=== PATIENT | female | born 1985 | race Caucasian/White ===

== ENCOUNTER 2017-08-31 12:56 | Inpatient (IN) | payer BC, OTHER ==
--- NOTE | 2017-08-31 16:21 | US ---
EXAMINATION: Biophysical profile HISTORY: Prolonged deceleration COMPARISON: None TECHNIQUE: Grayscale, M-mode, and real-time imaging obtained. FINDINGS: There is a single live intrauterine in a cephalic position. Heart rate is 130 bpm . Amniotic fluid index is normal. A score of 2 was given for breathing, however insufficient ev idence movement was demonstrated during a score of 0 for movement and tone. IMPRESSION: 1. Biophysical profile 12/26.
[2017-08-31] MEDS ORDERED: Methylergonovine 0.2 MG/1 ML Amp IM PRN (16:24)
[2017-08-31] MEDS ORDERED: Misoprostol 200 MCG Tab PO PRN (16:24)
[2017-08-31] MEDS ORDERED: Butorphanol 1 MG/ML SDV IVPUSH PRN (16:24)
[2017-08-31] MEDS ORDERED: Sodium Chloride 0.9% 2.5 ML Syringe FLUSH PRN ×2 (16:24→21:12)
[2017-08-31] MEDS ORDERED: Nalbuphine 10 MG/1 ML Vial IVPUSH PRN (16:24)
[2017-08-31] MEDS ORDERED: Carboprost Tromethamine 250 MCG/1 ML Amp IM PRN (16:24)
[2017-08-31] MEDS ORDERED: Lidocaine 1% 50 ML MDV INJECT PRN (16:24)
[2017-08-31] MEDS ORDERED: Sodium Chloride 0.9% 10 ML Syringe FLUSH PRN ×2 (16:24→21:12)
[2017-08-31] MEDS ORDERED: Water For Irrigation,Sterile 1,000 ML Container IRR PRN (16:24)
[2017-08-31] MEDS ORDERED: Oxytocin/0.9 % Sodium Chloride 30 UNIT/500 ML BAG IV SCH ×3 (16:30→21:15)
[2017-08-31] MEDS ORDERED: Lactated Ringers 1,000 ML IV SCH ×3 (16:30→22:15)
[2017-08-31] MEDS ORDERED: Terbutaline 1 MG/ML SDV SUBCUT PRN (16:47)
[2017-08-31] MEDS ORDERED: Misoprostol 25 MCG (1/4 of 100 MCG) Tab VAG PRN (16:47)
[2017-08-31] MEDS ORDERED: Misoprostol 25 MCG (1/4 of 100 MCG) Tab PO PRN (16:47)
--- NOTE | 2017-08-31 16:59 | PCM.LDHP ---
L&D History of Present Illness - General Date of Service: 08/31/17 Admit Problem/Dx: Patient Status Order with Admit Dx/Problem 08/31/17 14:29 Patient Status [ADT] Routine 08/31/17 16:24 Patient Status [ADT] Routine Admission Diagnosis/Problem Admission Diagnosis/Problem Source of Information: Patient History Limitations: Reports: No Limitations - History of Present Illness Improves with: Reports: None Worsens with: Reports: None Associated Symptoms: Reports: N - Related Data Allergies/Adverse Reactions: Allergies Allergy/AdvReac Type Severity Reaction Status Date / Time cephalexin [From Keflex] Allergy Rash Verified 07/26/17 07:49 H&P Review of Systems - Review of Systems: Review Of Systems: See Below General: Reports: No Symptoms HEENT: Reports: No Symptoms Pulmonary: Reports: No Symptoms Cardiovascular: Reports: No Symptoms Gastrointestinal: Reports: No Symptoms Genitourinary: Reports: No Symptoms Musculoskeletal: Reports: No Symptoms Skin: Reports: No Symptoms Psychiatric: Reports: No Symptoms Neurological: Reports: No Symptoms Hematologic/Lymphatic: Reports: No Symptoms Immunologic: Reports: No Symptoms L&D Exam - Exam Exam: See Below - Vital Signs Weight: 65.771 kg - OB Specific Fundal Height In cm: 36 Contraction Intensity: Mild Movement: Active Heart Tones: Present Presentation: Vertex - Saravia Score Saravia Score Cervix Position: Midposition Saravia Score Consistency: Medium Saravia Score Effacement: 31-50% Saravia Score Dilation: 1-2 cm Saravia Score Infant's Station: -2 Saravia Score Total: 5 - Exam General: Alert, Oriented HEENT: PERRLA, Conjunctiva Clear, EACs Clear, EOMI, Hearing Intact, Mucosa Moist & [place], Nares Patent, Normal Nasal Septum, Posterior Pharynx Clear, TMs Clear Neck: Supple, Trachea Midline Lungs: Clear to Auscultation, Normal Respiratory Effort Cardiovascular: Regular Rate, Regular Rhythm GI/Abdominal Exam: Normal Bowel Sounds, Soft, Non-Tender, No Organomegaly, No Distention, No Abnormal Bruit, No Mass, Pelvis Stable Rectal Exam: Normal Exam, Normal Rectal Tone Genitourinary: Normal external exam, Normal bimanual exam, Normal speculum exam Back Exam: Normal Inspection, Full Range of Motion Extremities: Normal Inspection, Normal Range of Motion, Non-Tender, No Pedal Edema, Normal Capillary Refill Skin: Warm, Dry, Intact Neurological: Cranial Nerves Intact, Reflexes Equal Bilateral Psychiatric: Alert, Normal Affect, Normal Mood Problem List Initiated/Reviewed/Updated: Yes Orders Last 24hrs: Active Orders 24 hr Category Date Time Status Patient Status [ADT] Routine ADT 08/31/17 14:29 Active Patient Status [ADT] Routine ADT 08/31/17 16:24 Active Bedrest Bathroom Privileges [RC] ASDIRECTED Care 08/31/17 16:47 Active Communication Order [RC] ASDIRECTED Care 08/31/17 16:47 Active Communication Order [RC] ASDIRECTED Care 08/31/17 16:47 Active Communication Order [RC] ASDIRECTED Care 08/31/17 16:47 Active Heart Tones [RC] CONTINUOUS Care 08/31/17 16:24 Active Non Stress Test [RC] PER UNIT ROUTINE Care 08/31/17 14:29 Active Non Stress Test [RC] PER UNIT ROUTINE Care 08/31/17 16:24 Active May Shower [RC] ASDIRECTED Care 08/31/17 16:24 Active Notify Provider [RC] PRN Care 08/31/17 16:24 Active Notify Provider [RC] PRN Care 08/31/17 16:47 Active Notify Provider [RC] PRN Care 08/31/17 16:47 Active Notify Provider [RC] STAT Care 08/31/17 16:47 Active Oxygen Therapy [RC] ASDIRECTED Care 08/31/17 16:47 Active Up ad Payton [RC] ASDIRECTED Care 08/31/17 14:29 Active Up ad [place] [RC] ASDIRECTED Care 08/31/17 16:24 Active Vaginal Exam [RC] Click to Edit Care 08/31/17 14:29 Active Vaginal Exam [RC] PRN Care 08/31/17 16:24 Active Vaginal Exam [RC] PRN Care 08/31/17 16:47 Active Vital Signs [RC] PER UNIT ROUTINE Care 08/31/17 14:29 Active Vital Signs [RC] PER UNIT ROUTINE Care 08/31/17 16:24 Active Vital Signs [RC] PER UNIT ROUTINE Care 08/31/17 16:47 Active CBC W/O DIFF,HEMOGRAM [HEME] Routine Lab 08/31/17 16:24 Ordered TYPE AND SCREEN [BBK] Routine Lab 08/31/17 16:24 Ordered Butorphanol [Stadol] Med 08/31/17 16:24 Active 1 mg IVPUSH ASDIRECTED PRN Carboprost Tromethamine [Hemabate DS] Med 08/31/17 16:24 Active 250 mcg IM ASDIRECTED PRN Lactated Ringers [Ringers, Lactated] 1,000 ml Med 08/31/17 16:30 Active IV ASDIRECTED Lidocaine 1% [Xylocaine 1%] Med 08/31/17 16:24 Active 50 ml INJECT .ONCE PRN Methylergonovine [Methergine] Med 08/31/17 16:24 Active 0.2 mg IM ASDIRECTED PRN Misoprostol [Cytotec] Med 08/31/17 16:24 Active 200 mcg PO .ONCE PRN Misoprostol [Cytotec] Med 08/31/17 17:00 Ordered 25 mcg PO .ONCE Misoprostol [Cytotec] Med 08/31/17 16:47 Ordered 25 mcg PO Q4H PRN Misoprostol [Cytotec] Med 08/31/17 17:00 Ordered 25 mcg VAG .ONCE Misoprostol [Cytotec] Med 08/31/17 16:47 Ordered 25 mcg VAG Q4H PRN Nalbuphine [Nubain] Med 08/31/17 16:24 Active 10 mg IVPUSH ASDIRECTED PRN Oxytocin/0.9 % Sodium Chloride [Oxytocin 30 Unit/500 ML Med 08/31/17 16:30 Active -NS] 30 unit in 500 ml IV ASDIRECTED Oxytocin/0.9 % Sodium Chloride [Oxytocin 30 Unit/500 ML Med 08/31/17 17:00 Ordered -NS] 30 unit in 500 ml IV TITRATE Sodium Chloride 0.9% [Saline Flush] Med 08/31/17 16:24 Active 10 ml FLUSH ASDIRECTED PRN Sodium Chloride 0.9% [Saline Flush] Med 08/31/17 16:24 Active 2.5 ml FLUSH ASDIRECTED PRN Terbutaline [Brethine] Med 08/31/17 16:47 Ordered 0.25 mg SUBCUT ASDIRECTED PRN Water For Irrigation,Sterile [Sterile Water for Med 08/31/17 16:24 Active Irrigation] 1,000 ml IRR ASDIRECTED PRN Scalp Electrode [WOMSER] Per Unit Routine Oth 08/31/17 16:24 Ordered Medication Administration Instruction [OM.PC] Q3H Oth 08/31/17 17:00 Ordered Peripheral IV Insertion Adult [OM.PC] Routine Oth 08/31/17 16:24 Ordered Resuscitation Status Routine Resus Stat 08/31/17 16:24 Ordered Medication Orders Butorphanol Tartrate (Stadol) 1 mg IVPUSH ASDIRECTED PRN PRN Reason: Pain Carboprost Tromethamine (Hemabate Ds) 250 mcg IM ASDIRECTED PRN PRN Reason: Post Hemorrhage Lactated Ringer's (Ringers, Lactated) 1,000 mls @ 150 mls/hr IV ASDIRECTED SHERICE Oxytocin/Sodium Chloride (Oxytocin 30 Unit/500 Ml-Ns) 30 unit in 500 mls @ 999 mls/hr IV ASDIRECTED SHERICE Oxytocin/Sodium Chloride (Oxytocin 30 Unit/500 Ml-Ns) 30 unit in 500 mls @ 2 mls/hr IV TITRATE SHERICE; 2 MUNITS/MIN PRN Reason: Protocol Lidocaine HCl (Xylocaine 1%) 50 ml INJECT .ONCE PRN PRN Reason: Laceration repair Methylergonovine Maleate (Methergine) 0.2 mg IM ASDIRECTED PRN PRN Reason: Post Hemorrhage Misoprostol (Cytotec) 200 mcg PO .ONCE PRN PRN Reason: Post Hemorrhage Misoprostol (Cytotec) 25 mcg VAG .ONCE SHERICE Misoprostol (Cytotec) 25 mcg VAG Q4H PRN PRN Reason: Cervical Ripening Misoprostol (Cytotec) 25 mcg PO .ONCE SHERICE Misoprostol (Cytotec) 25 mcg PO Q4H PRN PRN Reason: Cervical Ripening Nalbuphine HCl (Nubain) 10 mg IVPUSH ASDIRECTED PRN PRN Reason: Pain (severe 7-10) Sodium Chloride (Saline Flush) 10 ml FLUSH ASDIRECTED PRN PRN Reason: Keep Vein Open Sodium Chloride (Saline Flush) 2.5 ml FLUSH ASDIRECTED PRN PRN Reason: Keep Vein Open Sterile Water (Sterile Water For Irrigation) 1,000 ml IRR ASDIRECTED PRN PRN Reason: delivery Terbutaline Sulfate (Brethine) 0.25 mg SUBCUT ASDIRECTED PRN PRN Reason: Tacysystole Assessment/Plan Comment:: none reassuring NST with FAR cat2. BPP is 4/8. the Pt will be admitted for Cytotec induction if the fetus ca'nt tollerated she will have C/Section . I exolan that to the Pt in detail all her questions answered. I also explained that snice she is 36+2 wks the baby may have to be transfer.
[2017-08-31] MEDS ORDERED: Clindamycin Phosphate in D5W 900 MG in Premix Bag 1 BAG IV SCH ×2 (17:00)
[2017-08-31] MEDS ORDERED: Misoprostol 25 MCG (1/4 of 100 MCG) Tab PO SCH (17:00)
[2017-08-31] MEDS ORDERED: Misoprostol 25 MCG (1/4 of 100 MCG) Tab VAG SCH (17:00)
[2017-08-31] MEDS ORDERED: Citric Acid/Sodium Citrate Solution 30 ML Cup ONE (21:09)
[2017-08-31] MEDS ORDERED: fentaNYL 100 MCG/2 ML SDV ONE (21:13)
[2017-08-31] MEDS ORDERED: Propofol 200 MG/20 ML SDV ONE (21:13)
[2017-08-31] MEDS ORDERED: Citric Acid/Sodium Citrate Solution 30 ML Cup PO SCH (21:15)
[2017-08-31] MEDS ORDERED: Oxytocin 10 Units/1 ML SDV ONE (21:16)
[2017-08-31] MEDS ORDERED: Succinylcholine/Normal Saline 200 MG/10 ML Syringe ONE (21:16)
[2017-08-31] MEDS ORDERED: ePHEDrine 50 MG/ML SDV ONE (21:16)
[2017-08-31] MEDS ORDERED: Sodium Chloride 0.9% 20 ML ONE (21:16)
[2017-08-31] MEDS ORDERED: Rocuronium 10 MG/ML 10 ML Syringe ONE (21:16)
--- NOTE | 2017-08-31 21:42 | PCM.PREANE ---
Preanesthetic Assessment - Procedure Proposed Procedure: Emergent per Dr. Kunz - Anesthesia/Transfusion/Family Hx Anesthesia History: Prior Anesthesia Without Reaction Family History of Anesthesia Reaction: No Intubation History: Unknown - Review of Systems General: Other (active labor) Pulmonary: No Symptoms Cardiovascular: No Symptoms Gastrointestinal: Other (GERD) Neurological: No Symptoms Other: Reports: None, Anxiety - Physical Assessment NPO Status Date: 08/31/17 NPO Status Time: 12:00 (lunch) Height: 5 ft 3 in Weight: 145 lb ASA Class: 2E Mental Status: Alert & Oriented x3 Airway Class: Mallampati = 1 Dentition: Reports: Normal Dentition Thyro-Mental Finger Breadths: 3 Mouth Opening Finger Breadths: 3 ROM/Head Extension: Full Lungs: Clear to Auscultation, Normal Respiratory Effort Cardiovascular: Regular Rate, Regular Rhythm, No Murmurs - Lab Values: Laboratory Last Values WBC 16.67 K/uL (4.0-11.0) H 08/31/17 17:09 RBC 4.39 M/uL (4.30-5.90) 08/31/17 17:09 Hgb 12.7 g/dL (12.0-16.0) 08/31/17 17:09 Hct 37.2 % (36.0-46.0) 08/31/17 17:09 MCV 84.7 fL (80.0-98.0) 08/31/17 17:09 MCH 28.9 pg (27.0-32.0) 08/31/17 17:09 MCHC 34.1 g/dL (31.0-37.0) 08/31/17 17:09 RDW Std Deviation 45.7 fl (28.0-62.0) 08/31/17 17:09 RDW Coeff of Te 15 % (11.0-15.0) 08/31/17 17:09 Plt Count 295 K/uL (150-400) 08/31/17 17:09 MPV 11.60 fL (7.40-12.00) 08/31/17 17:09 Nucleated RBC % 0.0 /100WBC 08/31/17 17:09 Nucleated RBCs # 0 K/uL 08/31/17 17:09 Blood Type O POSITIVE 08/31/17 17:09 Antibody Screen NEGATIVE 08/31/17 17:09 - Allergies Allergies/Adverse Reactions: Allergies Allergy/AdvReac Type Severity Reaction Status Date / Time cephalexin [From Keflex] Allergy Rash Verified 07/26/17 07:49 - Blood Blood Available: Yes Product(s) Available: PRBC (T and S) - Anesthesia Plan Pre-Op Medication Ordered: Antacids (Bicitra per orders) - Acknowledgements Anesthesia Type Planned: General Anesthesia Pt an Appropriate Candidate for the Planned Anesthesia: Yes Alternatives and Risks of Anesthesia Discussed w Pt/Guardian: Yes Pt/Guardian Understands and Agrees with Anesthesia Plan: Yes Additional Comments: Emergent due to 36 wk with non reassuring vitals PreAnesthesia Questionnaire - CURRENT (IN HOUSE) MEDS Current Meds: Current Medications Butorphanol Tartrate (Stadol) 1 mg IVPUSH ASDIRECTED PRN PRN Reason: Pain Carboprost Tromethamine (Hemabate Ds) 250 mcg IM ASDIRECTED PRN PRN Reason: Post Hemorrhage Citric Acid/Sodium Citrate (Bicitra Solution) 30 ml PO .ONCE SHERICE Lactated Ringer's (Ringers, Lactated) 1,000 mls @ 150 mls/hr IV ASDIRECTED SHERICE Last Admin: 08/31/17 17:06 Dose: 150 mls/hr Oxytocin/Sodium Chloride (Oxytocin 30 Unit/500 Ml-Ns) 30 unit in 500 mls @ 999 mls/hr IV ASDIRECTED SHERICE Oxytocin/Sodium Chloride (Oxytocin 30 Unit/500 Ml-Ns) 30 unit in 500 mls @ 2 mls/hr IV TITRATE SHERICE; 2 MUNITS/MIN PRN Reason: Protocol Clindamycin Phosphate 900 mg/ (Premix) 50 mls @ 100 mls/hr IV Q8H SHERICE Last Admin: 08/31/17 17:23 Dose: 100 mls/hr Oxytocin/Sodium Chloride (Oxytocin 30 Unit/500 Ml-Ns) 30 unit in 500 mls @ 250 mls/hr IV TITRATE SHERICE Lactated Ringer's (Ringers, Lactated) 1,000 mls @ 500 mls/hr IV .BOLUS SHERICE Lidocaine HCl (Xylocaine 1%) 50 ml INJECT .ONCE PRN PRN Reason: Laceration repair Methylergonovine Maleate (Methergine) 0.2 mg IM ASDIRECTED PRN PRN Reason: Post Hemorrhage Misoprostol (Cytotec) 200 mcg PO .ONCE PRN PRN Reason: Post Hemorrhage Misoprostol (Cytotec) 25 mcg VAG .ONCE SHERICE Last Admin: 08/31/17 17:23 Dose: 25 mcg Misoprostol (Cytotec) 25 mcg VAG Q4H PRN PRN Reason: Cervical Ripening Misoprostol (Cytotec) 25 mcg PO .ONCE SHERICE Last Admin: 08/31/17 17:23 Dose: 25 mcg Misoprostol (Cytotec) 25 mcg PO Q4H PRN PRN Reason: Cervical Ripening Nalbuphine HCl (Nubain) 10 mg IVPUSH ASDIRECTED PRN PRN Reason: Pain (severe 7-10) Sodium Chloride (Saline Flush) 10 ml FLUSH ASDIRECTED PRN PRN Reason: Keep Vein Open Sodium Chloride (Saline Flush) 2.5 ml FLUSH ASDIRECTED PRN PRN Reason: Keep Vein Open Sodium Chloride (Saline Flush) 10 ml FLUSH ASDIRECTED PRN PRN Reason: Keep Vein Open Sodium Chloride (Saline Flush) 2.5 ml FLUSH ASDIRECTED PRN PRN Reason: Keep Vein Open Sterile Water (Sterile Water For Irrigation) 1,000 ml IRR ASDIRECTED PRN PRN Reason: delivery Terbutaline Sulfate (Brethine) 0.25 mg SUBCUT ASDIRECTED PRN PRN Reason: Tacysystole Last Admin: 08/31/17 21:09 Dose: 0.25 mg Discontinued Medications Citric Acid/Sodium Citrate (Bicitra Solution) Confirm Administered Dose 30 ml .ROUTE .STK-MED ONE Stop: 08/31/17 21:10 Last Admin: 08/31/17 21:15 Dose: 30 ml Ephedrine Sulfate (Ephedrine Sulfate) Confirm Administered Dose 50 mg .ROUTE .STK-MED ONE Stop: 08/31/17 21:17 Fentanyl (Sublimaze) Confirm Administered Dose 100 mcg .ROUTE .STK-MED ONE Stop: 08/31/17 21:14 Sodium Chloride (Normal Saline) Confirm Administered Dose 20 mls @ as directed .ROUTE .STK-MED ONE Stop: 08/31/17 21:17 Oxytocin (Pitocin) Confirm Administered Dose 20 unit .ROUTE .STK-MED ONE Stop: 08/31/17 21:17 Propofol (Diprivan 20 Ml) Confirm Administered Dose 200 mg .ROUTE .STK-MED ONE Stop: 08/31/17 21:14 Rocuronium [place] (Zemuron) Confirm Administered Dose 100 mg .ROUTE .STK-MED ONE Stop: 08/31/17 21:17 Succinylcholine Chloride (Succinylcholine In Ns Pf) Confirm Administered Dose 200 mg .ROUTE .STK-MED ONE Stop: 08/31/17 21:17
[2017-08-31] MEDS ORDERED: HYDROmorphone 2 MG/ML Syringe ONE (21:45)
[2017-08-31] MEDS ORDERED: Neostigmine Methylsulfate 1 MG/ML 5 ML Syringe ONE (21:50)
[2017-08-31] MEDS ORDERED: Ondansetron 4 MG/2 ML SDV ONE (21:50)
[2017-08-31] MEDS ORDERED: diphenhydrAMINE 50 MG/ML SDV ONE (21:50)
[2017-08-31] MEDS ORDERED: Ketorolac 30 MG/ML SDV ONE (21:57)
[2017-08-31] MEDS ORDERED: Octyl 2-Cyanoacrylate 1 Tube ONE (21:58)
[2017-08-31] MEDS ORDERED: Acetaminophen/oxyCODONE 325-5 MG Tab PO PRN ×2 (22:03)
[2017-08-31] MEDS ORDERED: diphenhydrAMINE 50 MG/ML SDV IVPUSH PRN (22:03)
[2017-08-31] MEDS ORDERED: Ondansetron 4 MG/2 ML SDV IV PRN (22:03)
[2017-08-31] MEDS ORDERED: Bisacodyl 10 MG Supp RECTAL PRN (22:03)
[2017-08-31] MEDS ORDERED: Lanolin 100% Cream 7 GM Tube TOP PRN (22:03)
[2017-08-31] MEDS ORDERED: fentaNYL 100 MCG/2 ML SDV IVPUSH PRN (22:04)
--- NOTE | 2017-08-31 22:08 | PCM.OPNOTE ---
- General Post-Op/Procedure Note Date of Surgery/Procedure: 08/31/17 Operative Procedure(s): Repeat C/Section Pre Op Diagnosis: IUP 36+wks distress Post-Op Diagnosis: Same Anesthesia Technique: General ET Tube Primary Surgeon: Abimael Kunz Systems Project Manager: Miri Andrews EBL in mLs: 700 Complications: None Condition: Good
--- NOTE | 2017-08-31 22:38 | PCM.POSTAN ---
POST ANESTHESIA ASSESSMENT - MENTAL STATUS Mental Status: Alert, Oriented - RESPIRATORY Respiratory Status: Respiratory Rate WNL, Airway Patent, O2 Saturation Stable - CARDIOVASCULAR CV Status: Pulse Rate WNL, Blood Pressure Stable - GASTROINTESTINAL GI Status: No Symptoms - POST OP HYDRATION Hydration Status: Adequate & Stable
--- NOTE | 2017-09-01 01:18 | OR ---
SURGEON: Abimael Kunz MD DATE OF PROCEDURE: PREOPERATIVE DIAGNOSIS: Intrauterine 36 weeks plus, non-reassuring heart rate remote from delivery. POSTOPERATIVE DIAGNOSIS: Intrauterine 36 weeks plus, non-reassuring heart rate remote from delivery. OPERATION PERFORMED: Primary low transverse section. PROFESSOR OF BIOCHEMISTRY: Miri Andrews CNM. ANESTHESIA: General endotracheal intubation by Brenda Cotto and Dr. Garcia. ESTIMATED BLOOD LOSS: 700 mL. COMPLICATIONS: None. FINDING: Male fetus, normal uterus, tubes, and ovaries. INDICATION: The patient is 32. She is para 3-0-0-3. She had 3 previous vaginal delivery. She was followed in our office. She has possibility of Down syndromes and she was having an NST today; however, her NST is not reactive. The BPD was 4/8. The patient is admitted with the intention of doing induction hopefully achieving vaginal delivery. However, the patient, she did not respond to the induction and she started having repeat late and deep deceleration with each contraction and she was remote from the delivery. A decision was made to do a primary low transverse section. PROCEDURE IN DETAIL: The patient was brought to the OR, properly identified. The patient was prepped and draped in sterile fashion as usual with a Montero catheter in the bladder. Then general anesthesia administered. Once the anesthesia administered, then low transverse Pfannenstiel skin incision was done. Manuel's fascia and rectus fascia were opened in direction of the incision. The 2 recti muscles , peritoneal cavity was entered. Bladder flap was raised in the usual manner pushing the bladder away from the lower uterine segment. Low transverse uterine incision was then extended manually and fetus was delivered and cried, immediately handed to the stock fitter who is Dr. Dobbs, who was present at the time of delivery for resuscitation. The placenta delivered spontaneous, complete, and intact and sent for histopathology and repair of the lower uterine segment done with 2-0 Vicryl continuous interlocking for hemostasis. Reperitonealization done with 3-0 Vicryl continuous and then the peritoneal cavity evacuated completely from all blood and blood clot and closed with 3-0 Vicryl continuous. The rectus fascia is closed with #1 PDS continuous, Manuel's fascia with 3-0 Vicryl continuous, and the skin closed with 3-0 Vicryl on a Chang needle in a subcuticular fashion with Dermabond. Instrument and sponge count was correct. The patient tolerated the procedure well, went to recovery room in stable general condition. BRITTNEY PONCE /[id number]
[2017-09-01] MEDS: Ketorolac 30 MG/ML SDV IVPUSH SCH ×4 (04:07→21:30)
--- NOTE | 2017-09-01 08:49 | PCM.PNPP ---
- General Info Date of Service: 09/01/17 Functional Status: Reports: Pain Controlled - Review of Systems General: Reports: No Symptoms HEENT: Reports: No Symptoms Pulmonary: Reports: No Symptoms Cardiovascular: Reports: No Symptoms Gastrointestinal: Reports: No Symptoms Genitourinary: Reports: No Symptoms Musculoskeletal: Reports: No Symptoms Skin: Reports: No Symptoms Neurological: Reports: No Symptoms Psychiatric: Reports: No Symptoms - General Info Date of Service: 09/01/17 - Patient Data Vital Signs - Most Recent: Last Vital Signs Temp 37.5 C 09/01/17 04:00 Pulse 64 09/01/17 04:00 Resp 15 09/01/17 04:00 BP 99/53 L 09/01/17 04:00 Pulse Ox 95 09/01/17 04:00 Weight - Most Recent: 65.771 kg I&O - Last 24 Hours: Intake & Output 08/31/17 09/01/17 09/01/17 22:59 06:59 14:59 Intake Total 1610 Output Total 400 1425 Balance -400 185 Lab Results - Last 24 Hours: Laboratory Results - last 24 hr 08/31/17 08/31/17 09/01/17 Range/Units 17:09 17:09 04:47 WBC 16.67 H (4.0-11.0) K/uL RBC 4.39 (4.30-5.90) M/uL Hgb 12.7 10.4 L (12.0-16.0) g/dL Hct 37.2 31.2 L (36.0-46.0) % MCV 84.7 (80.0-98.0) fL MCH 28.9 (27.0-32.0) pg MCHC 34.1 (31.0-37.0) g/dL RDW Std Deviation 45.7 (28.0-62.0) fl RDW Coeff of Te 15 (11.0-15.0) % Plt Count 295 (150-400) K/uL MPV 11.60 (7.40-12.00) fL Nucleated RBC % 0.0 /100WBC Nucleated RBCs # 0 K/uL Blood Type O POSITIVE Antibody Screen NEGATIVE Med Orders - Current: Current Medications Bisacodyl (Dulcolax) 10 mg RECTAL .ONCE PRN PRN Reason: Constipation Butorphanol Tartrate (Stadol) 1 mg IVPUSH ASDIRECTED PRN PRN Reason: Pain Carboprost Tromethamine (Hemabate Ds) 250 mcg IM ASDIRECTED PRN PRN Reason: Post Hemorrhage Citric Acid/Sodium Citrate (Bicitra Solution) 30 ml PO .ONCE [facility] Diphenhydramine HCl (Benadryl) 25 mg IVPUSH Q6H PRN PRN Reason: Itching or Nausea Docusate Sodium (Colace) 100 mg PO BID [facility] Emollient Ointment (Lansinoh Hpa) 0 gm TOP ASDIRECTED PRN PRN Reason: Sore Nipples Fentanyl (Sublimaze) 50 mcg IVPUSH Q5M PRN PRN Reason: Pain (severe 7-10) Stop: 09/01/17 23:59 Lactated Ringer's (Ringers, Lactated) 1,000 mls @ 150 mls/hr IV ASDIRECTED [facility] Last Admin: 08/31/17 17:06 Dose: 150 mls/hr Oxytocin/Sodium Chloride (Oxytocin 30 Unit/500 Ml-Ns) 30 unit in 500 mls @ 999 mls/hr IV ASDIRECTED [facility] Oxytocin/Sodium Chloride (Oxytocin 30 Unit/500 Ml-Ns) 30 unit in 500 mls @ 2 mls/hr IV TITRATE [facility]; 2 MUNITS/MIN PRN Reason: Protocol Clindamycin Phosphate 900 mg/ (Premix) 50 mls @ 100 mls/hr IV Q8H [facility] Last Admin: 08/31/17 17:23 Dose: 100 mls/hr Oxytocin/Sodium Chloride (Oxytocin 30 Unit/500 Ml-Ns) 30 unit in 500 mls @ 250 mls/hr IV TITRATE [facility] Lactated Ringer's (Ringers, Lactated) 1,000 mls @ 500 mls/hr IV .BOLUS [facility] Lactated Ringer's (Ringers, Lactated) 1,000 mls @ 125 mls/hr IV ASDIRECTED [facility] Last Admin: 09/01/17 00:52 Dose: 125 mls/hr Ibuprofen (Motrin) 800 mg PO Q8H PRN PRN Reason: mild pain or fever Ketorolac Tromethamine (Toradol) 30 mg IVPUSH Q6H [facility] Stop: 09/01/17 22:01 Last Admin: 09/01/17 04:07 Dose: 30 mg Lidocaine HCl (Xylocaine 1%) 50 ml INJECT .ONCE PRN PRN Reason: Laceration repair Methylergonovine Maleate (Methergine) 0.2 mg IM ASDIRECTED PRN PRN Reason: Post Hemorrhage Misoprostol (Cytotec) 200 mcg PO .ONCE PRN PRN Reason: Post Hemorrhage Misoprostol (Cytotec) 25 mcg VAG .ONCE [facility] Last Admin: 08/31/17 17:23 Dose: 25 mcg Misoprostol (Cytotec) 25 mcg VAG Q4H PRN PRN Reason: Cervical Ripening Misoprostol (Cytotec) 25 mcg PO .ONCE [facility] Last Admin: 08/31/17 17:23 Dose: 25 mcg Misoprostol (Cytotec) 25 mcg PO Q4H PRN PRN Reason: Cervical Ripening Nalbuphine HCl (Nubain) 10 mg IVPUSH ASDIRECTED PRN PRN Reason: Pain (severe 7-10) Ondansetron HCl (Zofran) 4 mg IV Q4H PRN PRN Reason: Nausea/Vomiting Oxycodone/Acetaminophen (Percocet 325-5 Mg) 1 tab PO Q4H PRN PRN Reason: Pain (moderate 4-6) Oxycodone/Acetaminophen (Percocet 325-5 Mg) 2 tab PO Q4H PRN PRN Reason: Pain (moderate 4-6) Sodium Chloride (Saline Flush) 10 ml FLUSH ASDIRECTED PRN PRN Reason: Keep Vein Open Sodium Chloride (Saline Flush) 2.5 ml FLUSH ASDIRECTED PRN PRN Reason: Keep Vein Open Sodium Chloride (Saline Flush) 10 ml FLUSH ASDIRECTED PRN PRN Reason: Keep Vein Open Sodium Chloride (Saline Flush) 2.5 ml FLUSH ASDIRECTED PRN PRN Reason: Keep Vein Open Sterile Water (Sterile Water For Irrigation) 1,000 ml IRR ASDIRECTED PRN PRN Reason: delivery Terbutaline Sulfate (Brethine) 0.25 mg SUBCUT ASDIRECTED PRN PRN Reason: Tacysystole Last Admin: 08/31/17 21:09 Dose: 0.25 mg Discontinued Medications Citric Acid/Sodium Citrate (Bicitra Solution) Confirm Administered Dose 30 ml .ROUTE .[facility]-MED ONE Stop: 08/31/17 21:10 Last Admin: 08/31/17 21:15 Dose: 30 ml Diphenhydramine HCl (Benadryl) Confirm Administered Dose 50 mg .ROUTE .STK-MED ONE Stop: 08/31/17 21:51 Ephedrine Sulfate (Ephedrine Sulfate) Confirm Administered Dose 50 mg .ROUTE .STK-MED ONE Stop: 08/31/17 21:17 Fentanyl (Sublimaze) Confirm Administered Dose 100 mcg .ROUTE .STK-MED ONE Stop: 08/31/17 21:14 Glycopyrrolate () Confirm Administered Dose 1 mg .ROUTE .STK-MED ONE Stop: 08/31/17 21:51 Hydromorphone HCl (Dilaudid) Confirm Administered Dose 2 mg .ROUTE .STK-MED ONE Stop: 08/31/17 21:46 Sodium Chloride (Normal Saline) Confirm Administered Dose 20 mls @ as directed .ROUTE .STK-MED ONE Stop: 08/31/17 21:17 Ketorolac Tromethamine (Toradol) Confirm Administered Dose 30 mg .ROUTE .STK- MED ONE Stop: 08/31/17 21:58 Neostigmine Methylsulfate (Neostigmine) Confirm Administered Dose 5 mg .ROUTE .STK-MED ONE Stop: 08/31/17 21:51 Octyl Cyanoacrylate (Dermabond Advance) Confirm Administered Dose 1 applic .ROUTE .STK-MED ONE Stop: 08/31/17 21:59 Ondansetron HCl (Zofran) Confirm Administered Dose 4 mg .ROUTE .STK-MED ONE Stop: 08/31/17 21:51 Oxytocin (Pitocin) Confirm Administered Dose 20 unit .ROUTE .STK-MED ONE Stop: 08/31/17 21:17 Propofol (Diprivan 20 Ml) Confirm Administered Dose 200 mg .ROUTE .STK-MED ONE Stop: 08/31/17 21:14 Rocuronium Lind (Zemuron) Confirm Administered Dose 100 mg .ROUTE .STK-MED ONE Stop: 08/31/17 21:17 Succinylcholine Chloride (Succinylcholine In Ns Pf) Confirm Administered Dose 200 mg .ROUTE .STK-MED ONE Stop: 08/31/17 21:17 - Infant Interaction Infant Disposition, : [place] in Room with Family Interaction: Holding Infant Feeding: Attempted ; Nursed Fair/Poor Support Person: Significant Other - Recovery Exam Fundal Tone: Firm Fundal Level: 1 Fingerbreadths Below Umbilicus Fundal Placement: Midline Lochia Amount: Scant Lochia Color: Rubra/Red Perineum Description: Intact, Minimal Bruising/Swelling Episiotomy/Laceration: None Bladder Status: Indwelling Catheter in Place Urinary Elimination: Indwelling Catheter - Exam General: Alert, Oriented HEENT: Pupils Equal Neck: Supple Lungs: Clear to Auscultation, Normal Respiratory Effort Cardiovascular: Regular Rate, Regular Rhythm GI/Abdominal Exam: Normal Bowel Sounds, Soft, Non-Tender, No Organomegaly, No Distention, No Abnormal Bruit, No Mass, Pelvis Stable Extremities: Normal Inspection, Normal Range of Motion, Non-Tender, No Pedal Edema, Normal Capillary Refill Skin: Warm, Dry, Intact Wound/Incisions: Healing Well Neurological: No New Focal Deficit Psy/Mental Status: Alert, Normal Affect, Normal Mood - Problem List Review Problem List Initiated/Reviewed/Updated: Yes - My Orders Last 24 Hours: My Active Orders 08/31/17 14:29 Patient Status [ADT] Routine Non Stress Test [RC] PER UNIT ROUTINE Up ad [place] [RC] ASDIRECTED Vital Signs [RC] PER UNIT ROUTINE 08/31/17 16:24 Patient Status [ADT] Routine May Shower [RC] ASDIRECTED Notify Provider [RC] PRN Up ad [place] [RC] ASDIRECTED Vital Signs [RC] PER UNIT ROUTINE Butorphanol [Stadol] 1 mg IVPUSH ASDIRECTED PRN Carboprost Tromethamine [Hemabate DS] 250 mcg IM ASDIRECTED PRN Lidocaine 1% [Xylocaine 1%] 50 ml INJECT .ONCE PRN Methylergonovine [Methergine] 0.2 mg IM ASDIRECTED PRN Misoprostol [Cytotec] 200 mcg PO .ONCE PRN Nalbuphine [Nubain] 10 mg IVPUSH ASDIRECTED PRN Sodium Chloride 0.9% [Saline Flush] 10 ml FLUSH ASDIRECTED PRN Sodium Chloride 0.9% [Saline Flush] 2.5 ml FLUSH ASDIRECTED PRN Water For Irrigation,Sterile [Sterile Water for Irrigation] 1,000 ml IRR ASDIRECTED PRN Scalp Electrode [WOMSER] Per Unit Routine Peripheral IV Insertion Adult [OM.PC] Routine Resuscitation Status Routine 08/31/17 16:30 Lactated Ringers [Ringers, Lactated] 1,000 ml IV ASDIRECTED Oxytocin/0.9 % Sodium Chloride [Oxytocin 30 Unit/500 ML-NS] 30 unit in 500 ml IV ASDIRECTED 08/31/17 16:47 Bedrest Bathroom Privileges [RC] ASDIRECTED Communication Order [RC] ASDIRECTED Communication Order [RC] ASDIRECTED Communication Order [RC] ASDIRECTED Notify Provider [RC] PRN Oxygen Therapy [RC] ASDIRECTED Vital Signs [RC] PER UNIT ROUTINE Misoprostol [Cytotec] 25 mcg PO Q4H PRN Misoprostol [Cytotec] 25 mcg VAG Q4H PRN Terbutaline [Brethine] 0.25 mg SUBCUT ASDIRECTED PRN 08/31/17 17:00 Clindamycin Phosphate in D5W [Cleocin in D5W] 900 mg Premix Bag 1 bag IV Q8H Misoprostol [Cytotec] 25 mcg PO .ONCE Misoprostol [Cytotec] 25 mcg VAG .ONCE Oxytocin/0.9 % Sodium Chloride [Oxytocin 30 Unit/500 ML-NS] 30 unit in 500 ml IV TITRATE Medication Administration Instruction [OM.PC] Q3H 08/31/17 21:12 Procedure Site Prep Instruct [RC] ASDIRECTED Up ad [place] [RC] ASDIRECTED Verify Patient Consent Obtain [RC] ASDIRECTED Vital Signs [RC] PER UNIT ROUTINE Sodium Chloride 0.9% [Saline Flush] 10 ml FLUSH ASDIRECTED PRN Sodium Chloride 0.9% [Saline Flush] 2.5 ml FLUSH ASDIRECTED PRN Peripheral IV Insertion Adult [OM.PC] Routine Schedule Procedure [COMM] Per Unit Routine 08/31/17 21:14 Notify Provider Vital Signs [RC] PRN 08/31/17 21:15 Citric Acid/Sodium Citrate [Bicitra Solution] 30 ml PO .ONCE Lactated Ringers [Ringers, Lactated] 1,000 ml IV .BOLUS Oxytocin/0.9 % Sodium Chloride [Oxytocin 30 Unit/500 ML-NS] 30 unit in 500 ml IV TITRATE 08/31/17 22:03 Acetaminophen/oxyCODONE [Percocet 325-5 MG] 1 tab PO Q4H PRN Acetaminophen/oxyCODONE [Percocet 325-5 MG] 2 tab PO Q4H PRN Bisacodyl [Dulcolax] 10 mg RECTAL .ONCE PRN Lanolin [Lansinoh HPA] See Dose Instructions TOP ASDIRECTED PRN Ondansetron [Zofran] 4 mg IV Q4H PRN diphenhydrAMINE [Benadryl] 25 mg IVPUSH Q6H PRN 08/31/17 22:04 Patient Status [ADT] Routine Ambulate [RC] PER UNIT ROUTINE Antiembolic Devices [RC] PER UNIT ROUTINE Communication Order [RC] PER UNIT ROUTINE Communication Order [RC] PER UNIT ROUTINE Communication Order [RC] Per Unit Routine May Shower [RC] ASDIRECTED RT Incentive Spirometry [RC] Q2HWA Vital Signs [RC] PER UNIT ROUTINE Assess Lochia [WOMSER] Per Unit Routine Assess Uterine Involution [WOMSER] Per Unit Routine Breast Pump [WOMSER] Per Unit Routine Peripheral IV Discontinue [OM.PC] Routine Sequential Compression Device [OM.PC] Per Unit Routine 08/31/17 22:15 Lactated Ringers [Ringers, Lactated] 1,000 ml IV ASDIRECTED 09/01/17 04:00 Ketorolac [Toradol] 30 mg IVPUSH Q6H 09/01/17 09:00 Docusate Sodium [Colace] 100 mg PO BID 09/01/17 Breakfast Regular Diet [DIET] 09/02/17 04:00 Ibuprofen [Motrin] 800 mg PO Q8H PRN - Assessment Assessment:: Status post primary section yesterday for nonreassuring heart rate postoperative day #1+ stable Port-A-Cath there is DC the patient is ambulating around the bed on regular diet minimum vaginal bleeding - Plan Plan:: none reassuring NST with FAR cat2. BPP is 4/8. the Pt will be admitted for Cytotec induction if the fetus ca'nt tollerated she will have C/Section . I exolan that to the Pt in detail all her questions answered. I also explained that snice she is 36+2 wks the baby may have to be transfer. 09/01/17 Regular care with the plan to send patient home in a.m.
[2017-09-01] MEDS: Docusate Sodium 100 MG Cap PO SCH ×2 (09:58→21:31)
[2017-09-02] MEDS ORDERED: Ibuprofen 800 MG Tab PO PRN (04:00)
[2017-09-02] MEDS: Docusate Sodium 100 MG Cap PO SCH (08:00)
--- NOTE | 2017-09-02 09:43 | PCM.PNPP ---
- General Info Date of Service: 09/02/17 Functional Status: Reports: Pain Controlled - Review of Systems General: Reports: No Symptoms HEENT: Reports: No Symptoms Pulmonary: Reports: No Symptoms Cardiovascular: Reports: No Symptoms Gastrointestinal: Reports: No Symptoms Genitourinary: Reports: No Symptoms Musculoskeletal: Reports: No Symptoms Skin: Reports: No Symptoms Neurological: Reports: No Symptoms Psychiatric: Reports: No Symptoms - General Info Date of Service: 09/02/17 - Patient Data Vital Signs - Most Recent: Last Vital Signs Temp 36.4 C 09/02/17 07:50 Pulse 81 09/02/17 07:50 Resp 16 09/02/17 07:50 BP 119/75 09/02/17 07:50 Pulse Ox 96 09/02/17 07:50 Weight - Most Recent: 65.771 kg Med Orders - Current: Current Medications Bisacodyl (Dulcolax) 10 mg RECTAL .ONCE PRN PRN Reason: Constipation Butorphanol Tartrate (Stadol) 1 mg IVPUSH ASDIRECTED PRN PRN Reason: Pain Carboprost Tromethamine (Hemabate Ds) 250 mcg IM ASDIRECTED PRN PRN Reason: Post Hemorrhage Citric Acid/Sodium Citrate (Bicitra Solution) 30 ml PO .ONCE [facility] Diphenhydramine HCl (Benadryl) 25 mg IVPUSH Q6H PRN PRN Reason: Itching or Nausea Docusate Sodium (Colace) 100 mg PO BID [facility] Last Admin: 09/02/17 08:00 Dose: 100 mg Emollient Ointment (Lansinoh Hpa) 0 gm TOP ASDIRECTED PRN PRN Reason: Sore Nipples Lactated Ringer's (Ringers, Lactated) 1,000 mls @ 150 mls/hr IV ASDIRECTED [facility] Last Admin: 08/31/17 17:06 Dose: 150 mls/hr Oxytocin/Sodium Chloride (Oxytocin 30 Unit/500 Ml-Ns) 30 unit in 500 mls @ 999 mls/hr IV ASDIRECTED [facility] Oxytocin/Sodium Chloride (Oxytocin 30 Unit/500 Ml-Ns) 30 unit in 500 mls @ 2 mls/hr IV TITRATE [facility]; 2 MUNITS/MIN PRN Reason: Protocol Clindamycin Phosphate 900 mg/ (Premix) 50 mls @ 100 mls/hr IV Q8H [facility] Last Admin: 08/31/17 17:23 Dose: 100 mls/hr Oxytocin/Sodium Chloride (Oxytocin 30 Unit/500 Ml-Ns) 30 unit in 500 mls @ 250 mls/hr IV TITRATE [facility] Lactated Ringer's (Ringers, Lactated) 1,000 mls @ 500 mls/hr IV .BOLUS [facility] Lactated Ringer's (Ringers, Lactated) 1,000 mls @ 125 mls/hr IV ASDIRECTED [facility] Last Admin: 09/01/17 00:52 Dose: 125 mls/hr Ibuprofen (Motrin) 800 mg PO Q8H PRN PRN Reason: mild pain or fever Last Admin: 09/02/17 07:29 Dose: 800 mg Lidocaine HCl (Xylocaine 1%) 50 ml INJECT .ONCE PRN PRN Reason: Laceration repair Methylergonovine Maleate (Methergine) 0.2 mg IM ASDIRECTED PRN PRN Reason: Post Hemorrhage Misoprostol (Cytotec) 200 mcg PO .ONCE PRN PRN Reason: Post Hemorrhage Misoprostol (Cytotec) 25 mcg VAG .ONCE [facility] Last Admin: 08/31/17 17:23 Dose: 25 mcg Misoprostol (Cytotec) 25 mcg VAG Q4H PRN PRN Reason: Cervical Ripening Misoprostol (Cytotec) 25 mcg PO .ONCE [facility] Last Admin: 08/31/17 17:23 Dose: 25 mcg Misoprostol (Cytotec) 25 mcg PO Q4H PRN PRN Reason: Cervical Ripening Nalbuphine HCl (Nubain) 10 mg IVPUSH ASDIRECTED PRN PRN Reason: Pain (severe 7-10) Ondansetron HCl (Zofran) 4 mg IV Q4H PRN PRN Reason: Nausea/Vomiting Oxycodone/Acetaminophen (Percocet 325-5 Mg) 1 tab PO Q4H PRN PRN Reason: Pain (moderate 4-6) Oxycodone/Acetaminophen (Percocet 325-5 Mg) 2 tab PO Q4H PRN PRN Reason: Pain (moderate 4-6) Sodium Chloride (Saline Flush) 10 ml FLUSH ASDIRECTED PRN PRN Reason: Keep Vein Open Sodium Chloride (Saline Flush) 2.5 ml FLUSH ASDIRECTED PRN PRN Reason: Keep Vein Open Sodium Chloride (Saline Flush) 10 ml FLUSH ASDIRECTED PRN PRN Reason: Keep Vein Open Sodium Chloride (Saline Flush) 2.5 ml FLUSH ASDIRECTED PRN PRN Reason: Keep Vein Open Sterile Water (Sterile Water For Irrigation) 1,000 ml IRR ASDIRECTED PRN PRN Reason: delivery Terbutaline Sulfate (Brethine) 0.25 mg SUBCUT ASDIRECTED PRN PRN Reason: Tacysystole Last Admin: 08/31/17 21:09 Dose: 0.25 mg Discontinued Medications Citric Acid/Sodium Citrate (Bicitra Solution) Confirm Administered Dose 30 ml .ROUTE .STK-MED ONE Stop: 08/31/17 21:10 Last Admin: 08/31/17 21:15 Dose: 30 ml Diphenhydramine HCl (Benadryl) Confirm Administered Dose 50 mg .ROUTE .STK-MED ONE Stop: 08/31/17 21:51 Ephedrine Sulfate (Ephedrine Sulfate) Confirm Administered Dose 50 mg .ROUTE .STK-MED ONE Stop: 08/31/17 21:17 Fentanyl (Sublimaze) Confirm Administered Dose 100 mcg .ROUTE .STK-MED ONE Stop: 08/31/17 21:14 Fentanyl (Sublimaze) 50 mcg IVPUSH Q5M PRN PRN Reason: Pain (severe 7-10) Stop: 09/01/17 23:59 Glycopyrrolate () Confirm Administered Dose 1 mg .ROUTE .STK-MED ONE Stop: 08/31/17 21:51 Hydromorphone HCl (Dilaudid) Confirm Administered Dose 2 mg .ROUTE .STK-MED ONE Stop: 08/31/17 21:46 Sodium Chloride (Normal Saline) Confirm Administered Dose 20 mls @ as directed .ROUTE .STK-MED ONE Stop: 08/31/17 21:17 Ketorolac Tromethamine (Toradol) Confirm Administered Dose 30 mg .ROUTE .STK- MED ONE Stop: 08/31/17 21:58 Ketorolac Tromethamine (Toradol) 30 mg IVPUSH Q6H [facility] Stop: 09/01/17 22:01 Last Admin: 09/01/17 21:30 Dose: 30 mg Neostigmine Methylsulfate (Neostigmine) Confirm Administered Dose 5 mg .ROUTE .STK-MED ONE Stop: 08/31/17 21:51 Octyl Cyanoacrylate (Dermabond Advance) Confirm Administered Dose 1 applic .ROUTE .STK-MED ONE Stop: 08/31/17 21:59 Ondansetron HCl (Zofran) Confirm Administered Dose 4 mg .ROUTE .STK-MED ONE Stop: 08/31/17 21:51 Oxytocin (Pitocin) Confirm Administered Dose 20 unit .ROUTE .STK-MED ONE Stop: 08/31/17 21:17 Propofol (Diprivan 20 Ml) Confirm Administered Dose 200 mg .ROUTE .STK-MED ONE Stop: 08/31/17 21:14 Rocuronium Vandervoort (Zemuron) Confirm Administered Dose 100 mg .ROUTE .STK-MED ONE Stop: 08/31/17 21:17 Succinylcholine Chloride (Succinylcholine In Ns Pf) Confirm Administered Dose 200 mg .ROUTE .STK-MED ONE Stop: 08/31/17 21:17 - Infant Interaction Infant Disposition, : [place] in Room with Family Infant Interaction: Holding Infant Feeding: Attempted ; Nursed Fair/Poor Support Person: Significant Other - Recovery Exam Fundal Tone: Firm Fundal Level: At Umbilicus Fundal Placement: Midline Lochia Amount: Scant Lochia Color: Rubra/Red Perineum Description: Intact, Minimal Bruising/Swelling Episiotomy/Laceration: None Bladder Status: Voiding Urinary Elimination: Voided - Exam General: Alert, Oriented HEENT: Pupils Equal Neck: Supple Lungs: Clear to Auscultation, Normal Respiratory Effort Cardiovascular: Regular Rate, Regular Rhythm GI/Abdominal Exam: Normal Bowel Sounds, Soft, Non-Tender, No Organomegaly, No Distention, No Abnormal Bruit, No Mass, Pelvis Stable Extremities: Normal Inspection, Normal Range of Motion, Non-Tender, No Pedal Edema, Normal Capillary Refill Skin: Warm, Dry, Intact Wound/Incisions: Healing Well Neurological: No New Focal Deficit Psy/Mental Status: Alert, Normal Affect, Normal Mood - Problem List Review Problem List Initiated/Reviewed/Updated: Yes - My Orders Last 24 Hours: My Active Orders 09/01/17 09:00 Docusate Sodium [Colace] 100 mg PO BID 09/02/17 04:00 Ibuprofen [Motrin] 800 mg PO Q8H PRN - Assessment Assessment:: Status post primary section yesterday for nonreassuring heart rate postoperative day #1+ stable Port-A-Cath there is DC the patient is ambulating around the bed on regular diet minimum vaginal bleeding - Plan Plan:: none reassuring NST with FAR cat2. BPP is 4/8. the Pt will be admitted for Cytotec induction if the fetus ca'nt tollerated she will have C/Section . I exolan that to the Pt in detail all her questions answered. I also explained that snice she is 36+2 wks the baby may have to be transfer. 09/01/17 Regular care with the plan to send patient home in a.m.
== END 2017-09-02 14:30 | disposition home or self-care (01) | DRG 540 ==
LOC: MW.OBCHECK 12:56 → MW.OB 13:00 → MW.OBCHECK 16:24 → MW.OB 16:24 → OBSVTOIN 21:44
PROVIDERS: ADMIT Obstetrics & Gynecology; ATTEND Obstetrics & Gynecology
PROC: 10D00Z1 Extraction of Products of Conception, Low, Open Approach (ICD-10-PCS; principal; 2017-08-31)
PROC: 3E0P7VZ Introduction of Hormone into Female Reproductive, Via Natural or Artificial Opening (ICD-10-PCS; 2017-08-31)
DX: O76 Abnormality in fetal heart rate and rhythm complicating labor and delivery (principal); Z3A.36 36 weeks gestation of pregnancy; Z37.0 Single live birth
CPT/HCPCS: 01961; 36415; 59025; 76819; 76819-26; 85014; 85018; 85027; 86850; 86900; 86901; 88307; A9270-GY; J1170; J1200; J1885; J2405; J2590; J2704; J3010; J3105; J7120

== ENCOUNTER 2018-11-10 05:19 | Inpatient (IN) | payer BC, OTHER ==
[~2018-11-10 05:19] MED LIST: Citric Acid/Sodium Citrate Solution 30 ML Cup PO ONE; Oxytocin/0.9 % Sodium Chloride 30 UNIT/500 ML BAG IV SCH; Sodium Chloride 0.9% 10 ML Syringe FLUSH PRN; Sodium Chloride 0.9% 2.5 ML Syringe FLUSH PRN
[2018-11-10] MEDS: Lactated Ringers 1,000 ML IV SCH ×3 (05:50→07:47)
[2018-11-10] MEDS ORDERED: Morphine PF 10 MG/10 ML SDV ONE (07:23)
[2018-11-10] MEDS ORDERED: Ondansetron 4 MG/2 ML SDV ONE (07:23)
[2018-11-10] MEDS ORDERED: Octyl 2-Cyanoacrylate 1 Tube ONE ×2 (07:33→08:49)
[2018-11-10] MEDS ORDERED: Oxytocin/0.9 % Sodium Chloride 30 UNIT/500 ML BAG ONE (07:44)
[2018-11-10] MEDS ORDERED: ePHEDrine 50 MG/ML SDV ONE (07:47)
--- NOTE | 2018-11-10 07:49 | PCM.PREANE ---
Preanesthetic Assessment - Anesthesia/Transfusion/Family Hx Anesthesia History: Prior Anesthesia Without Reaction (GA for last ) Family History of Anesthesia Reaction: No Transfusion History: No Prior Transfusion(s) Intubation History: Unknown - Review of Systems General: No Symptoms Pulmonary: No Symptoms Cardiovascular: No Symptoms Gastrointestinal: No Symptoms Neurological: No Symptoms Other: Reports: None - Physical Assessment NPO Status Date: 11/10/18 NPO Status Time: 00:00 Blood Pressure: 112/63 Height: 5 ft 3 in Weight: 171 lb ASA Class: 2 Mental Status: Alert & Oriented x3 Airway Class: Mallampati = 2 Dentition: Reports: Normal Dentition Thyro-Mental Finger Breadths: 3 Mouth Opening Finger Breadths: 3 ROM/Head Extension: Full Lungs: Clear to Auscultation, Normal Respiratory Effort Cardiovascular: Regular Rate, Regular Rhythm - Lab Values: Laboratory Last Values WBC 18.92 K/uL (4.0-11.0) H 11/09/18 10:00 RBC 4.04 M/uL (4.30-5.90) L 11/09/18 10:00 Hgb 10.9 g/dL (12.0-16.0) L 11/09/18 10:00 Hct 33.1 % (36.0-46.0) L 11/09/18 10:00 MCV 81.9 fL (80.0-98.0) 11/09/18 10:00 MCH 27.0 pg (27.0-32.0) 11/09/18 10:00 MCHC 32.9 g/dL (31.0-37.0) 11/09/18 10:00 RDW Std Deviation 42.4 fl (28.0-62.0) 11/09/18 10:00 RDW Coeff of Te 14 % (11.0-15.0) 11/09/18 10:00 Plt Count 351 K/uL (150-400) 11/09/18 10:00 MPV 11.30 fL (7.40-12.00) 11/09/18 10:00 Nucleated RBC % 0.0 /100WBC 11/09/18 10:00 Nucleated RBCs # 0 K/uL 11/09/18 10:00 Blood Type O POSITIVE 11/09/18 10:00 Antibody Screen NEGATIVE 11/09/18 10:00 - Allergies Allergies/Adverse Reactions: Allergies Allergy/AdvReac Type Severity Reaction Status Date / Time cephalexin [From Keflex] Allergy Rash Verified 11/08/18 08:28 - Blood Blood Available: No Product(s) Available: None - Anesthesia Plan Free Text/Narrative:: SAB with back GA if needed - Acknowledgements Anesthesia Type Planned: Spinal Pt an Appropriate Candidate for the Planned Anesthesia: Yes Alternatives and Risks of Anesthesia Discussed w Pt/Guardian: Yes Pt/Guardian Understands and Agrees with Anesthesia Plan: Yes PreAnesthesia Questionnaire HEENT History: Reports: None Gastrointestinal History: Reports: None Genitourinary History: Reports: None [employer] History: Reports: Neurological History: Reports: Seizure Other Neuro History: seizures as a child, none since 5 years of age - Past Surgical History Head Surgeries/Procedures: Reports: None HEENT Surgical History: Reports: Adenoidectomy, Tonsillectomy GI Surgical History: Reports: Cholecystectomy Female Surgical History: Reports: Section - SUBSTANCE USE Smoking Status *Q: Current Some Day Smoker (1 pack q 2-3 days) Second Hand Smoke Exposure: No Recreational Drug Use History: No - HOME MEDS Home Medications: Home Meds PNV95/Ferrous Fumarate/FA [ Vitamin Tablet] 1 tab PO DAILY 11/08/18 [ History] - CURRENT (IN HOUSE) MEDS Current Meds: Current Medications Lactated Ringer's (Ringers, Lactated) 1,000 mls @ 500 mls/hr IV BOLUS [facility] Last Admin: 11/10/18 06:59 Dose: 999 mls/hr Oxytocin/Sodium Chloride (Oxytocin 30 Unit/500 Ml-Ns) 30 unit in 500 mls @ 250 mls/hr IV TITRATE [facility] Sodium Chloride (Saline Flush) 10 ml FLUSH ASDIRECTED PRN PRN Reason: Keep Vein Open Last Admin: 11/10/18 05:48 Dose: 10 ml Sodium Chloride (Saline Flush) 2.5 ml FLUSH ASDIRECTED PRN PRN Reason: Keep Vein Open Discontinued Medications Citric Acid/Sodium Citrate (Bicitra Solution) 30 ml PO ONETIME ONE Stop: 11/09/18 09:22 Morphine Sulfate (Duramorph Pf) Confirm Administered Dose 10 mg .ROUTE .STK-MED ONE Stop: 11/10/18 07:24 Octyl Cyanoacrylate (Dermabond Advance) Confirm Administered Dose 1 applic .ROUTE .STK-MED ONE Stop: 11/10/18 07:34 Ondansetron HCl (Zofran) Confirm Administered Dose 4 mg .ROUTE .STK-MED ONE Stop: 11/10/18 07:24
--- NOTE | 2018-11-10 08:03 | PCM.LDHP ---
L&D History of Present Illness - General Date of Service: 11/10/18 Admit Problem/Dx: Patient Status Order with Admit Dx/Problem 11/09/18 09:22 Patient Status [ADT] Routine Admission Diagnosis/Problem Admission Diagnosis/Problem Source of Information: Patient History Limitations: Reports: No Limitations - History of Present Illness Improves with: Reports: None Worsens with: Reports: None Associated Symptoms: Reports: N - Related Data Allergies/Adverse Reactions: Allergies Allergy/AdvReac Type Severity Reaction Status Date / Time cephalexin [From Keflex] Allergy Rash Verified 11/08/18 08:28 Home Medications: Home Meds PNV95/Ferrous Fumarate/FA [ Vitamin Tablet] 1 tab PO DAILY 11/08/18 [ History] Past Medical History HEENT History: Reports: None Gastrointestinal History: Reports: None Genitourinary History: Reports: None RESIDENTIAL CONCIERGE History: Reports: Neurological History: Reports: Seizure Other Neuro History: seizures as a child, none since 5 years of age - Past Surgical History Head Surgeries/Procedures: Reports: None HEENT Surgical History: Reports: Adenoidectomy, Tonsillectomy GI Surgical History: Reports: Cholecystectomy Female Surgical History: Reports: Section Social & Family History - Family History Family Medical History: Noncontributory - Tobacco Use Smoking Status *Q: Current Some Day Smoker (1 pack q 2-3 days) Used Tobacco, but Quit: Yes Month/Year Tobacco Last Used: quit smoking 1 year ago Second Hand Smoke Exposure: No - Caffeine Use Caffeine Use: Reports: Coffee - Recreational Drug Use Recreational Drug Use: No H&P Review of Systems - Review of Systems: Review Of Systems: See Below General: Reports: No Symptoms HEENT: Reports: No Symptoms Pulmonary: Reports: No Symptoms Cardiovascular: Reports: No Symptoms Gastrointestinal: Reports: No Symptoms Genitourinary: Reports: No Symptoms Musculoskeletal: Reports: No Symptoms Skin: Reports: No Symptoms Psychiatric: Reports: No Symptoms Neurological: Reports: No Symptoms Hematologic/Lymphatic: Reports: No Symptoms Immunologic: Reports: No Symptoms L&D Exam - Exam Exam: See Below - Vital Signs Vital Signs: Last Vital Signs Temp Pulse Resp BP 112/63 11/10/18 07:48 Pulse Ox Weight: 77.564 kg - OB Specific Fundal Height In cm: 37 Contraction Intensity: Mild Movement: Active Heart Tones: Present Presentation: Vertex - Saravia Score Saravia Score Cervix Position: Midposition Saravia Score Consistency: Medium Saravia Score Effacement: 31-50% Saravia Score Dilation: Closed Saravia Score 's Station: -3 Saravia Score Total: 3 - Exam General: Alert, Oriented HEENT: PERRLA, Conjunctiva Clear, EACs Clear, EOMI, Hearing Intact, Mucosa Moist & [place], Nares Patent, Normal Nasal Septum, Posterior Pharynx Clear, TMs Clear Neck: Supple, Trachea Midline Lungs: Clear to Auscultation, Normal Respiratory Effort Cardiovascular: Regular Rate, Regular Rhythm GI/Abdominal Exam: Normal Bowel Sounds, Soft, Non-Tender, No Organomegaly, No Distention, No Abnormal Bruit, No Mass, Pelvis Stable Rectal Exam: Normal Exam, Normal Rectal Tone Genitourinary: Normal external exam, Normal bimanual exam, Normal speculum exam Back Exam: Normal Inspection, Full Range of Motion Extremities: Normal Inspection, Normal Range of Motion, Non-Tender, No Pedal Edema, Normal Capillary Refill Skin: Warm, Dry, Intact Neurological: Cranial Nerves Intact, Reflexes Equal Bilateral Psychiatric: Alert, Normal Affect, Normal Mood - Patient Data Lab Results Last 24 hrs: Laboratory Results - last 24 hr 11/09/18 11/09/18 Range/Units 10:00 10:00 WBC 18.92 H (4.0-11.0) K/uL RBC 4.04 L (4.30-5.90) M/uL Hgb 10.9 L (12.0-16.0) g/dL Hct 33.1 L (36.0-46.0) % MCV 81.9 (80.0-98.0) fL MCH 27.0 (27.0-32.0) pg MCHC 32.9 (31.0-37.0) g/dL RDW Std Deviation 42.4 (28.0-62.0) fl RDW Coeff of Te 14 (11.0-15.0) % Plt Count 351 (150-400) K/uL MPV 11.30 (7.40-12.00) fL Nucleated RBC % 0.0 /100WBC Nucleated RBCs # 0 K/uL Blood Type O POSITIVE Antibody Screen NEGATIVE Result Diagrams: 11/09/18 10:00 Problem List Initiated/Reviewed/Updated: Yes Orders Last 24hrs: Active Orders 24 hr Category Date Time Status Patient Status [ADT] Routine ADT 11/09/18 09:22 Active Non Stress Test [RC] PER UNIT ROUTINE Care 11/09/18 09:22 Active Procedure Site Prep Instruct [RC] ASDIRECTED Care 11/09/18 09:22 Active Up ad [place] [RC] ASDIRECTED Care 11/09/18 09:22 Active Vital Signs [RC] PER UNIT ROUTINE Care 11/09/18 09:22 Active Lactated Ringers [Ringers, Lactated] 1,000 ml Med 11/09/18 09:30 Active IV BOLUS Oxytocin/0.9 % Sodium Chloride [Oxytocin 30 Unit/500 ML Med 11/09/18 09:30 Active -NS] 30 unit in 500 ml IV TITRATE Sodium Chloride 0.9% [Saline Flush] Med 11/09/18 09:21 Active 10 ml FLUSH ASDIRECTED PRN Sodium Chloride 0.9% [Saline Flush] Med 11/09/18 09:21 Active 2.5 ml FLUSH ASDIRECTED PRN Vancomycin [Vancocin] 1 gm Med 11/10/18 07:51 Active Sodium Chloride 0.9% [Normal Saline] 250 ml IV ONETIME Peripheral IV Insertion Adult [OM.PC] Routine Oth 11/09/18 09:22 Ordered Schedule Procedure [COMM] Per Unit Routine Oth 11/09/18 09:22 Ordered Resuscitation Status Routine Resus Stat 11/09/18 09:21 Ordered Medication Orders Lactated Ringer's (Ringers, Lactated) 1,000 mls @ 500 mls/hr IV BOLUS SHERICE Last Admin: 11/10/18 07:47 Dose: 999 mls/hr Infusion: 11/10/18 07:47 Dose: 999 mls/hr Admin: 11/10/18 06:59 Dose: 999 mls/hr Infusion: 11/10/18 06:51 Dose: 999 mls/hr Admin: 11/10/18 05:50 Dose: 999 mls/hr Oxytocin/Sodium Chloride (Oxytocin 30 Unit/500 Ml-Ns) 30 unit in 500 mls @ 250 mls/hr IV TITRATE SHERICE Vancomycin HCl 1 gm/ Sodium (Chloride) 250 mls @ 166 mls/hr IV ONETIME ONE Stop: 11/10/18 09:21 Sodium Chloride (Saline Flush) 10 ml FLUSH ASDIRECTED PRN PRN Reason: Keep Vein Open Last Admin: 11/10/18 05:48 Dose: 10 ml Sodium Chloride (Saline Flush) 2.5 ml FLUSH ASDIRECTED PRN PRN Reason: Keep Vein Open Assessment/Plan Comment:: Term admitted for elective repeat C/Section.
[2018-11-10] MEDS ORDERED: Nalbuphine 10 MG/1 ML Vial IVPUSH PRN (08:36)
[2018-11-10] MEDS ORDERED: Acetaminophen/oxyCODONE 325-5 MG Tab PO PRN ×3 (08:36→08:52)
[2018-11-10] MEDS ORDERED: Naloxone 0.4 MG/ML Syringe IVPUSH PRN (08:36)
[2018-11-10] MEDS ORDERED: Bisacodyl 10 MG Supp RECTAL PRN (08:52)
[2018-11-10] MEDS ORDERED: Lanolin 100% Cream 7 GM Tube TOP PRN (08:52)
[2018-11-10] MEDS ORDERED: Ondansetron 4 MG/2 ML SDV IVPUSH PRN (08:52)
[2018-11-10] MEDS ORDERED: diphenhydrAMINE 50 MG/ML SDV IVPUSH PRN (08:52)
--- NOTE | 2018-11-10 08:58 | PCM.OPNOTE ---
- General Post-Op/Procedure Note Date of Surgery/Procedure: 11/10/18 Operative Procedure(s): Repeat C/Section, IUP 39+4 Pre Op Diagnosis: IUP 39+ previous C/section. Post-Op Diagnosis: Same Anesthesia Technique: Spinal Primary Surgeon: Abimael Kunz EBL in mLs: 600 Complications: None Condition: Good
[2018-11-10] MEDS ORDERED: Lactated Ringers 1,000 ML IV SCH (09:00)
[2018-11-10] MEDS: Ketorolac 30 MG/ML SDV IVPUSH SCH ×3 (09:17→21:10)
[2018-11-10] MEDS: Docusate Sodium 100 MG Cap PO SCH ×2 (10:59→21:10)
--- NOTE | 2018-11-10 12:21 | OR ---
SURGEON: Abimael Kunz MD DATE OF PROCEDURE: 11/10/2018 PREOPERATIVE DIAGNOSIS: Intrauterine at 39 weeks plus previous section. POSTOPERATIVE DIAGNOSIS: Intrauterine at 39 weeks plus previous section. OPERATION PERFORMED: Repeat low-transverse section. [employer]PORATE [employer] SPECIALIST: OR tech. ANESTHESIA: Spinal. ANESTHESIOLOGIST: Dr. Patsy Estes and Dr. Rueda. ESTIMATED BLOOD LOSS: 600 mL. COMPLICATIONS: None. FINDINGS: Female fetus. scores reported to be 8 and 9. Normal uterus, tubes, and ovaries. INDICATION FOR SURGERY: This patient has had previous section. She is admitted for elective repeat section. PROCEDURE IN DETAIL: The patient was brought to the OR, properly identified and after adequate level of spinal anesthesia with Montero catheter in the bladder, the patient was prepped and draped in sterile fashion as usual. After taking time-out and properly identifying the patient, a low-transverse Pfannenstiel skin incision was done. Manuel's fascia and rectus fascia were opened in the direction of the incision. The two recti muscles were and peritoneal cavity was entered. Bladder flap was raised in the usual manner pushing the bladder away from the lower uterine segment, and then low transverse uterine incision was done, extended manually with hand. Fetus was in vertex position, delivered without any problem. The placenta delivered spontaneous, complete, and intact, and repair of the lower uterine segment was done with 2-0 Vicryl continuous interlocking in 2 layers. Reperitonealization of the lower uterine segment done with 3-0 Vicryl continuous, and then the peritoneal cavity evacuated from all blood clot, and closed with 3-0 Vicryl continuous, and then rectus fascia was closed with #1 PDS continuous, Manuel's fascia with 3-0 Vicryl continuous, the skin was closed with skin clips, Insorb, and Dermabond. Instrument and sponge counts were correct. The patient tolerated the procedure well, went to recovery room in stable general condition. BRITTNEY / ROSARIO /[id number]
[2018-11-11] MEDS: Ketorolac 30 MG/ML SDV IVPUSH SCH ×2 (03:03→09:00)
--- NOTE | 2018-11-11 06:51 | PCM48HPAN ---
Post Anesthesia Note - EVALUATION WITHIN 48HRS OF ANESTHETIC Vital Signs in Normal Range: Yes Patient Participated in Evaluation: Yes Respiratory Function Stable: Yes Airway Patent: Yes Cardiovascular Function Stable: Yes Hydration Status Stable: Yes Pain Control Satisfactory: Yes Nausea and Vomiting Control Satisfactory: Yes Mental Status Recovered: Yes Resp Rate: 16 Blood Pressure: 112/63
[2018-11-11] MEDS: Docusate Sodium 100 MG Cap PO SCH ×2 (09:00→21:16)
--- NOTE | 2018-11-11 09:43 | PCM.PNPP ---
- General Info Date of Service: 11/11/18 Functional Status: Reports: Pain Controlled - Review of Systems General: Reports: No Symptoms HEENT: Reports: No Symptoms Pulmonary: Reports: No Symptoms Cardiovascular: Reports: No Symptoms Gastrointestinal: Reports: No Symptoms Genitourinary: Reports: No Symptoms Musculoskeletal: Reports: No Symptoms Skin: Reports: No Symptoms Neurological: Reports: No Symptoms Psychiatric: Reports: No Symptoms - General Info Date of Service: 11/11/18 - Patient Data Vital Signs - Most Recent: Last Vital Signs Temp 36.9 C 11/11/18 07:20 Pulse 75 11/11/18 07:20 Resp 17 11/11/18 07:20 BP 96/57 L 11/11/18 07:20 Pulse Ox 96 11/11/18 07:20 Weight - Most Recent: 77.564 kg I&O - Last 24 Hours: Intake & Output 11/10/18 11/11/18 11/11/18 22:59 06:59 14:59 Output Total 750 1500 480 Balance -750 -1500 -480 Lab Results - Last 24 Hours: Laboratory Results - last 24 hr 11/11/18 Range/Units 05:05 Hgb 9.1 L (12.0-16.0) g/dL Hct 27.5 L (36.0-46.0) % Med Orders - Current: Current Medications Bisacodyl (Dulcolax) 10 mg RECTAL ONETIME PRN PRN Reason: Constipation Diphenhydramine HCl (Benadryl) 25 mg IVPUSH Q6H PRN PRN Reason: Itching or Nausea Docusate Sodium (Colace) 100 mg PO BID [facility] Last Admin: 11/11/18 09:00 Dose: 100 mg Emollient Ointment (Lansinoh Hpa) 0 gm TOP ASDIRECTED PRN PRN Reason: Sore Nipples Lactated Ringer's (Ringers, Lactated) 1,000 mls @ 500 mls/hr IV BOLUS [facility] Last Admin: 11/10/18 07:47 Dose: 999 mls/hr Oxytocin/Sodium Chloride (Oxytocin 30 Unit/500 Ml-Ns) 30 unit in 500 mls @ 250 mls/hr IV TITRATE [facility] Lactated Ringer's (Ringers, Lactated) 1,000 mls @ 125 mls/hr IV ASDIRECTED [facility] Last Admin: 11/10/18 14:46 Dose: 125 mls/hr Ibuprofen (Motrin) 800 mg PO Q8H PRN PRN Reason: mild pain or fever Ondansetron HCl (Zofran) 4 mg IVPUSH Q4H PRN PRN Reason: Nausea/Vomiting Last Admin: 11/10/18 13:12 Dose: 4 mg Oxycodone/Acetaminophen (Percocet 325-5 Mg) 1 tab PO ONETIME PRN PRN Reason: Breakthrough Pain Oxycodone/Acetaminophen (Percocet 325-5 Mg) 1 tab PO Q4H PRN PRN Reason: Pain (moderate 4-6) Oxycodone/Acetaminophen (Percocet 325-5 Mg) 2 tab PO Q4H PRN PRN Reason: Pain (moderate 4-6) Sodium Chloride (Saline Flush) 10 ml FLUSH ASDIRECTED PRN PRN Reason: Keep Vein Open Last Admin: 11/10/18 05:48 Dose: 10 ml Sodium Chloride (Saline Flush) 2.5 ml FLUSH ASDIRECTED PRN PRN Reason: Keep Vein Open Discontinued Medications Citric Acid/Sodium Citrate (Bicitra Solution) 30 ml PO ONETIME ONE Stop: 11/09/18 09:22 Ephedrine Sulfate (Ephedrine Sulfate) Confirm Administered Dose 50 mg .ROUTE .STK-MED ONE Stop: 11/10/18 07:48 Oxytocin/Sodium Chloride (Oxytocin 30 Unit/500 Ml-Ns) Confirm Administered Dose 30 unit in 500 mls @ as directed .ROUTE .STK-MED ONE Stop: 11/10/18 07:45 Vancomycin HCl 1 gm/ Sodium (Chloride) 250 mls @ 166 mls/hr IV ONETIME ONE Stop: 11/10/18 09:21 Last Admin: 11/10/18 11:00 Dose: Not Given Ketorolac Tromethamine (Toradol) 30 mg IVPUSH Q6H [facility] Stop: 11/11/18 09:01 Last Admin: 11/11/18 09:00 Dose: 30 mg Morphine Sulfate (Duramorph Pf) Confirm Administered Dose 10 mg .ROUTE .STK-MED ONE Stop: 11/10/18 07:24 Nalbuphine HCl (Nubain) 5 mg IVPUSH Q3H PRN PRN Reason: Pruritis Stop: 11/11/18 08:37 Naloxone HCl (Narcan) 0.1 mg IVPUSH ONETIME PRN PRN Reason: RR<6 WITH STIMULATION Stop: 11/11/18 08:37 Octyl Cyanoacrylate (Dermabond Advance) Confirm Administered Dose 1 applic .ROUTE .STK-MED ONE Stop: 11/10/18 07:34 Octyl Cyanoacrylate (Dermabond Advance) Confirm Administered Dose 1 applic .ROUTE .STK-MED ONE Stop: 11/10/18 08:50 Ondansetron HCl (Zofran) Confirm Administered Dose 4 mg .ROUTE .STK-MED ONE Stop: 11/10/18 07:24 - Interaction Disposition, : [place] in Room with Family Interaction: Holding Infant Feeding: Attempted ; Nursed Fair/Poor Support Person: Significant Other - Recovery Exam Fundal Tone: Firm Fundal Level: 1 Fingerbreadths Below Umbilicus Fundal Placement: Midline Lochia Amount: Scant Lochia Color: Rubra/Red Perineum Description: Intact, Minimal Bruising/Swelling Episiotomy/Laceration: None Bladder Status: Nonpalpable Urinary Elimination: Indwelling Catheter - Exam General: Alert, Oriented HEENT: Pupils Equal Neck: Supple Lungs: Clear to Auscultation, Normal Respiratory Effort Cardiovascular: Regular Rate, Regular Rhythm GI/Abdominal Exam: Normal Bowel Sounds, Soft, Non-Tender, No Organomegaly, No Distention, No Abnormal Bruit, No Mass, Pelvis Stable Extremities: Normal Inspection, Normal Range of Motion, Non-Tender, No Pedal Edema, Normal Capillary Refill Skin: Warm, Dry, Intact Wound/Incisions: Healing Well Neurological: No New Focal Deficit Psy/Mental Status: Alert, Normal Affect, Normal Mood - Problem List Review Problem List Initiated/Reviewed/Updated: Yes - My Orders Last 24 Hours: My Active Orders 11/10/18 08:52 Patient Status [ADT] Routine Ambulate [RC] PER UNIT ROUTINE Communication Order [RC] PER UNIT ROUTINE Communication Order [RC] PER UNIT ROUTINE Communication Order [RC] Per Unit Routine May Shower [RC] ASDIRECTED RT Incentive Spirometry [RC] Q2HWA Vital Signs [RC] PER UNIT ROUTINE Acetaminophen/oxyCODONE [Percocet 325-5 MG] 1 tab PO Q4H PRN Acetaminophen/oxyCODONE [Percocet 325-5 MG] 2 tab PO Q4H PRN Bisacodyl [Dulcolax] 10 mg RECTAL ONETIME PRN Ibuprofen [Motrin] 800 mg PO Q8H PRN Lanolin [Lansinoh HPA] See Dose Instructions TOP ASDIRECTED PRN Ondansetron [Zofran] 4 mg IVPUSH Q4H PRN diphenhydrAMINE [Benadryl] 25 mg IVPUSH Q6H PRN Assess Lochia [WOMSER] Per Unit Routine Assess Uterine Involution [WOMSER] Per Unit Routine Breast Pump [WOMSER] Per Unit Routine Peripheral IV Discontinue [OM.PC] Routine Sequential Compression Device [OM.PC] Per Unit Routine 11/10/18 08:53 Antiembolic Devices [RC] PER UNIT ROUTINE 11/10/18 09:00 Docusate Sodium [Colace] 100 mg PO BID Lactated Ringers [Ringers, Lactated] 1,000 ml IV ASDIRECTED 11/10/18 Dinner Regular Diet [DIET] - Assessment Assessment:: Status post section postoperative day #1 the patient is doing well she is ambulatory she is on regular diet for week after DC'd and she is already able to pass urine. We are planning for her to be discharged - Plan Plan:: Term admitted for elective repeat C/Section.
[2018-11-11] MEDS: Ibuprofen 800 MG Tab PO PRN (16:56)
[2018-11-12] MEDS: Ibuprofen 800 MG Tab PO PRN (05:06)
[2018-11-12] MEDS: Docusate Sodium 100 MG Cap PO SCH (09:04)
--- NOTE | 2018-11-12 11:13 | PCM.DCSUM1 ---
Discharge Summary - Hospital Course Diagnosis: Stroke: No - Discharge Data Discharge Date: 11/12/18 Discharge Disposition: Home, Self-Care 01 Condition: Good - Patient Summary/Data Operative Procedure(s) Performed: Repeat C/Section, IUP 39+4 - Patient Instructions Diet: Usual Diet as Tolerated Activity: As Tolerated Driving: Do Not Drive Showering/Bathing: May Shower Wound/Incision Care: Keep Operative Site/Wound Site Clean and Dry Notify Provider of: Fever, Increased Pain, Nausea and/or Vomiting - Discharge Plan Home Medications: Home Meds PNV95/Ferrous Fumarate/FA [ Vitamin Tablet] 1 tab PO DAILY 11/08/18 [ History] Referrals: [facility] [Outside] Abimael Kunz MD [Physician] - 11/22/18 3:00 pm - Discharge Summary/Plan Comment DC Time >30 min.: Yes - General Info Date of Service: 11/12/18 Functional Status: Reports: Pain Controlled - Review of Systems General: Reports: No Symptoms HEENT: Reports: No Symptoms Pulmonary: Reports: No Symptoms Cardiovascular: Reports: No Symptoms Gastrointestinal: Reports: No Symptoms Genitourinary: Reports: No Symptoms Musculoskeletal: Reports: No Symptoms Skin: Reports: No Symptoms Neurological: Reports: No Symptoms Psychiatric: Reports: No Symptoms - Patient Data Vitals - Most Recent: Last Vital Signs Temp 36.9 C 11/12/18 08:05 Pulse 99 11/12/18 08:05 Resp 16 11/12/18 08:37 BP 112/63 11/12/18 08:37 Pulse Ox 95 11/12/18 08:05 Weight - Most Recent: 77.564 kg Med Orders - Current: Current Medications Bisacodyl (Dulcolax) 10 mg RECTAL ONETIME PRN PRN Reason: Constipation Diphenhydramine HCl (Benadryl) 25 mg IVPUSH Q6H PRN PRN Reason: Itching or Nausea Docusate Sodium (Colace) 100 mg PO BID [facility] Last Admin: 11/12/18 09:04 Dose: 100 mg Emollient Ointment (Lansinoh Hpa) 0 gm TOP ASDIRECTED PRN PRN Reason: Sore Nipples Lactated Ringer's (Ringers, Lactated) 1,000 mls @ 500 mls/hr IV BOLUS [facility] Last Admin: 11/10/18 07:47 Dose: 999 mls/hr Oxytocin/Sodium Chloride (Oxytocin 30 Unit/500 Ml-Ns) 30 unit in 500 mls @ 250 mls/hr IV TITRATE [facility] Lactated Ringer's (Ringers, Lactated) 1,000 mls @ 125 mls/hr IV ASDIRECTED [facility] Last Admin: 11/10/18 14:46 Dose: 125 mls/hr Ibuprofen (Motrin) 800 mg PO Q8H PRN PRN Reason: mild pain or fever Last Admin: 11/12/18 05:06 Dose: 800 mg Ondansetron HCl (Zofran) 4 mg IVPUSH Q4H PRN PRN Reason: Nausea/Vomiting Last Admin: 11/10/18 13:12 Dose: 4 mg Oxycodone/Acetaminophen (Percocet 325-5 Mg) 1 tab PO ONETIME PRN PRN Reason: Breakthrough Pain Oxycodone/Acetaminophen (Percocet 325-5 Mg) 1 tab PO Q4H PRN PRN Reason: Pain (moderate 4-6) Oxycodone/Acetaminophen (Percocet 325-5 Mg) 2 tab PO Q4H PRN PRN Reason: Pain (moderate 4-6) Sodium Chloride (Saline Flush) 10 ml FLUSH ASDIRECTED PRN PRN Reason: Keep Vein Open Last Admin: 11/10/18 05:48 Dose: 10 ml Sodium Chloride (Saline Flush) 2.5 ml FLUSH ASDIRECTED PRN PRN Reason: Keep Vein Open Discontinued Medications Citric Acid/Sodium Citrate (Bicitra Solution) 30 ml PO ONETIME ONE Stop: 11/09/18 09:22 Ephedrine Sulfate (Ephedrine Sulfate) Confirm Administered Dose 50 mg .ROUTE .STK-MED ONE Stop: 11/10/18 07:48 Oxytocin/Sodium Chloride (Oxytocin 30 Unit/500 Ml-Ns) Confirm Administered Dose 30 unit in 500 mls @ as directed .ROUTE .STK-MED ONE Stop: 11/10/18 07:45 Vancomycin HCl 1 gm/ Sodium (Chloride) 250 mls @ 166 mls/hr IV ONETIME ONE Stop: 11/10/18 09:21 Last Admin: 11/10/18 11:00 Dose: Not Given Ketorolac Tromethamine (Toradol) 30 mg IVPUSH Q6H [facility] Stop: 11/11/18 09:01 Last Admin: 11/11/18 09:00 Dose: 30 mg Morphine Sulfate (Duramorph Pf) Confirm Administered Dose 10 mg .ROUTE .STK-MED ONE Stop: 11/10/18 07:24 Nalbuphine HCl (Nubain) 5 mg IVPUSH Q3H PRN PRN Reason: Pruritis Stop: 11/11/18 08:37 Naloxone HCl (Narcan) 0.1 mg IVPUSH ONETIME PRN PRN Reason: RR<6 WITH STIMULATION Stop: 11/11/18 08:37 Octyl Cyanoacrylate (Dermabond Advance) Confirm Administered Dose 1 applic .ROUTE .STK-MED ONE Stop: 11/10/18 07:34 Octyl Cyanoacrylate (Dermabond Advance) Confirm Administered Dose 1 applic .ROUTE .STK-MED ONE Stop: 11/10/18 08:50 Ondansetron HCl (Zofran) Confirm Administered Dose 4 mg .ROUTE .STK-MED ONE Stop: 11/10/18 07:24 - Exam General: Reports: Alert, Oriented HEENT: Reports: Pupils Equal, Pupils Reactive, EOMI, Mucous Membr. Moist/[place] Neck: Reports: Supple Lungs: Reports: Clear to Auscultation, Normal Respiratory Effort Cardiovascular: Reports: Regular Rate, Regular Rhythm GI/Abdominal Exam: Normal Bowel Sounds, Soft, Non-Tender, No Organomegaly, No Distention, No Abnormal Bruit, No Mass, Pelvis Stable (Female) Exam: Normal External Exam, Normal Speculum Exam, Normal Bimanual Exam Rectal (Female) Exam: Normal Exam, Normal Rectal Tone Back Exam: Reports: Normal Inspection, Full Range of Motion Extremities: Normal Inspection, Normal Range of Motion, Non-Tender, No Pedal Edema, Normal Capillary Refill Skin: Reports: Warm, Dry, Intact Wound/Incisions: Reports: Healing Well Neurological: Reports: No New Focal Deficit Psy/Mental Status: Reports: Alert, Normal Affect, Normal Mood
== END 2018-11-12 12:20 | disposition home or self-care (01) | DRG 788 ==
LOC: MW.OB 05:19
PROVIDERS: ADMIT Obstetrics & Gynecology; ATTEND Obstetrics & Gynecology
PROC: 10D00Z1 Extraction of Products of Conception, Low, Open Approach (ICD-10-PCS; principal; 2018-11-10)
DX: O34.211 Maternal care for low transverse scar from previous cesarean delivery (principal); N85.8 Other specified noninflammatory disorders of uterus; Z3A.39 39 weeks gestation of pregnancy; O99.334 Smoking (tobacco) complicating childbirth; F17.210 Nicotine dependence, cigarettes, uncomplicated; Z37.0 Single live birth; O99.824 Streptococcus B carrier state complicating childbirth; Z88.1 Allergy status to other antibiotic agents; Z90.49 Acquired absence of other specified parts of digestive tract
CPT/HCPCS: 36415; 59020; 85014; 85018; 85027; 86850; 86900; 86901; A9270-GY; J1885; J2270; J2405; J2590; J7120